=== PATIENT | female | born 1985 | race Caucasian/White ===

== ENCOUNTER 2019-01-28 07:57 | Outpatient (CLI) | payer OTHER ==
--- NOTE | 2019-01-28 09:34 | RAD ---
Exam: Upper GI with air contrast: HISTORY: Upper abdominal pain Swallowing function was unremarkable. The esophagus shows no stricture or ulcer or mass. Fundus, body , and antrum the stomach are normal. Normal-appearing pylorus. Normal-appearing duodenum and C-loop. IMPRESSION: Normal upper GI series.
== END 2019-01-28 07:58 | disposition home or self-care (01) ==
LOC: RAD 07:57
PROVIDERS: ATTEND Internal Medicine
DX: R10.10 Upper abdominal pain, unspecified (principal)
CPT/HCPCS: 74247

== ENCOUNTER 2019-07-02 15:20 | Outpatient (CLI) | payer OTHER ==
--- NOTE | 2019-07-02 15:42 | RAD ---
Exam: 3 views sinuses HISTORY: Acute rhinosinusitis FINDINGS: Visualized calvarium and maxillofacial bones are unremarkable Symmetric aeration of the paranasal sinuses and mastoid air cells IMPRESSION: Unremarkable sinus radiograph series. Additional imaging if clinically warranted
== END 2019-07-02 15:21 | disposition home or self-care (01) ==
LOC: BICRAD 15:20
PROVIDERS: ATTEND Internal Medicine
DX: J01.90 Acute sinusitis, unspecified (principal)
CPT/HCPCS: 70220

== ENCOUNTER 2020-03-07 19:39 | Emergency (ER) | payer OTHER ==
[2020-03-07 20:09] LABS: Bacteria/HPF None Seen HPF (None Seen); Bilirubin Negative (Negative); Blood, Urine 2+ (Negative); Clarity Clear (Clear); Glucose, Urine (Dipstick) Normal (Negative); Ketone, Urine Negative (Negative); Leukocyte 25 Leu/uL (Negative); Nitrite Negative (Negative); Pregnancy Test - Urine (BHCG) Negative (Negative); Pregu Control Background? CLEAR/WHITE (CLR/WHITE); Pregu Control Bar Appear? YES (CONTROL BAR); Protein, Urine (Dipstick) 10 mg/dL (Neg-Trace); Specific Gravity 1.032 (1.002-1.036); Specific Gravity, Urine 1.032 (1.002-1.036); Urobilinogen Normal mg/dL (Less than 2); pH, Urine 5.5 (5.0-9.0)
[2020-03-07] MEDS ORDERED: Ketorolac Tromethamine 30 MG/ML VIAL ONE (21:06)
[2020-03-07 21:19] LABS: #Eosinphils 0.1 thou/uL (0.0-0.7); #Monocytes 0.7 thou/uL (0.11-0.59); #Neutrophils 6.8 thou/uL (1.40-6.50); %Basophils 0.2 % (0.0-1.0); %Eosinophils 0.8 % (0.0-10.0); %Lymphocytes 28.8 % (21.0-51.0); %Monocytes 6.5 % (0.0-10.0); %Neutrophils 63.8 % (42.0-75.0); Hemoglobin 12.8 g/dL (12.0-16.0); Mean Corpuscular HGB CONC 34.9 g/dL (32.0-36.0); Mean Corpuscular Hemoglobin 30.3 pg (27.0-31.0); Mean Platelet Volume 8.5 fL (7.4-10.4); Platelet Count 279 thou/uL (130-400); RBC Distribution Width 12.1 % (11.5-14.5); Red Blood Cell (RBC) Count 4.23 mill/uL (4.20-5.40); White Blood Cell (WBC) Count 10.6 thou/uL (4.8-10.8)
--- NOTE | 2020-03-07 21:41 | ULT ---
PELVIC ULTRASOUND: Transabdominal ultrasound of the pelvis performed. Indications: Pelvic pain. FINDINGS: The uterus has an unremarkable appearance. Endometrial stripe measured at 6 mm. Echogenicity in the e ndometrium consistent with IUD. The left ovary is identified and appears unremarkable. The right ovary shows an exophytic cyst measuring 4-5 cm. Both ovaries demonstrate normal blood flow with color doppler and spectral analysis. No free fluid. IMPRESSION: Right ovarian cyst. POS: AGW
[2020-03-07 21:42] LABS: ALT (SGPT) 24 U/L (8-55); AST (SGOT) 21 U/L (5-34); Albumin 4.1 g/dL (3.5-5.0); Alkaline Phosphatase 93 U/L (40-110); BUN (Urea Nitrogen) 12 mg/dL (7.0-18.7); Bilirubin, Total 0.3 mg/dL (0.2-1.2); Calc. Creatinine Clearance 0 mL/min (70-130); Calcium 9.1 mg/dL (7.8-10.44); Carbon Dioxide 23 mmol/L (22-29); Chloride 106 mmol/L (98-107); Estimated GFR-MDRD Greater than 90; Globulin 3.3 g/dL (2.4-3.5); Glucose 94 mg/dL (70-105); Potassium 4.2 mmol/L (3.5-5.1); Protein, Total 7.4 g/dL (6.0-8.3); Sodium 136 mmol/L (136-145)
[2020-03-07 22:04] LABS: Anion Gap 13 mmol/L (10-20)
== END 2020-03-07 22:49 | disposition home or self-care (01) ==
LOC: ERS 19:39
DX: R10.32 Left lower quadrant pain (principal); F41.9 Anxiety disorder, unspecified; J45.909 Unspecified asthma, uncomplicated; Z79.899 Other long term (current) drug therapy
CPT/HCPCS: 36415; 76856; 80053; 81003; 81015; 81025; 85025; 93976; 96372; J1885

== ENCOUNTER 2020-03-30 15:36 | Outpatient (CLI) | payer OTHER ==
--- NOTE | 2020-03-30 16:20 | CT ---
CT head noncontrast HISTORY: Altered mental status. FINDINGS: Within the deep white matter abutting the upper posterior lateral aspect of the left latera l ventricle is an oval, ill-defined 0.5 cm hyperdense focus. Favored to not be hemorrhage. There is no associated edema. No mass effect. No other focal abnormalities are apparent. Ventricles appear normal in size, shape an d position. Visualized paranasal sinuses are well aerated. IMPRESSION : Small hyperdense lesion adjacent to the left lateral ventricle. Further evaluation is warranted. This may represent a vascular malformation such as cavernoma. Please consider MRI brain, without and with gadolinium contrast, for better characterization.
== END 2020-03-30 15:37 | disposition home or self-care (01) ==
LOC: BICCT 15:36
PROVIDERS: ATTEND Family Medicine
DX: F80.89 Other developmental disorders of speech and language (principal); G93.9 Disorder of brain, unspecified
CPT/HCPCS: 70450

== ENCOUNTER 2021-04-14 05:52 | Emergency (ER) | payer OTHER ==
[2021-04-14] MEDS ORDERED: Ketorolac Tromethamine 30 MG/ML VIAL ONE (06:01)
[2021-04-14 06:33] LABS: #Basophils 0.1 thou/uL (0.0-0.2); #Eosinphils 0.2 thou/uL (0.0-0.7); #Lymphocytes 2.4 thou/uL (1.20-3.40); #Monocytes 0.7 thou/uL (0.11-0.59); %Basophils 0.7 % (0.0-1.0); %Eosinophils 1.6 % (0.0-10.0); %Lymphocytes 23.4 % (21.0-51.0); %Monocytes 6.6 % (0.0-10.0); %Neutrophils 67.7 % (42.0-75.0); Hemoglobin 12.1 g/dL (12.0-16.0); Mean Corpuscular HGB CONC 35.6 g/dL (32.0-36.0); Mean Platelet Volume 7.9 fL (7.4-10.4); Platelet Count 256 thou/uL (130-400); RBC Distribution Width 11.9 % (11.5-14.5); Red Blood Cell (RBC) Count 3.91 mill/uL (4.20-5.40); White Blood Cell (WBC) Count 10.4 thou/uL (4.8-10.8)
[2021-04-14 07:01] LABS: ALT (SGPT) 42 U/L (8-55); AST (SGOT) 38 U/L (5-34); Albumin 3.3 g/dL (3.5-5.0); Alkaline Phosphatase 115 U/L (40-110); Anion Gap 12 mmol/L (10-20); BUN (Urea Nitrogen) 14 mg/dL (7.0-18.7); Bilirubin, Total 0.5 mg/dL (0.2-1.2); Calc. Creatinine Clearance 0 mL/min (70-130); Calcium 8.5 mg/dL (7.8-10.44); Carbon Dioxide 21 mmol/L (22-29); Chloride 107 mmol/L (98-107); Globulin 3.5 g/dL (2.4-3.5); Glucose 103 mg/dL (70-105); Potassium 3.8 mmol/L (3.5-5.1); Protein, Total 6.8 g/dL (6.0-8.3); Sodium 136 mmol/L (136-145)
== END 2021-04-14 09:19 | disposition home or self-care (01) ==
LOC: ERS 05:52
DX: U07.1 COVID-19 (principal); J12.82 Pneumonia due to coronavirus disease 2019; R07.9 Chest pain, unspecified; R11.2 Nausea with vomiting, unspecified; D50.9 Iron deficiency anemia, unspecified; J45.909 Unspecified asthma, uncomplicated
CPT/HCPCS: 71045; 71275; 80053; 84484; 85025; 93005; 96374; J1885

== ENCOUNTER 2022-05-17 14:46 | Outpatient (CLI) | payer OTHER ==
[~2022-05-17 14:46] MED LIST: Iopamidol 300 61% 50 ML VIAL FS ONE
== END 2022-05-17 14:47 | disposition home or self-care (01) ==
LOC: RAD 14:46
PROVIDERS: ATTEND Advanced Practice Midwife
DX: Z98.51 Tubal ligation status (principal); N97.1 Female infertility of tubal origin
CPT/HCPCS: 58340; 74740

== ENCOUNTER 2022-10-17 07:34 | Emergency (ER) | payer OTHER ==
[2022-10-17] MEDS ORDERED: Acetaminophen 500 MG TAB ONE (08:52)
[2022-10-17] MEDS ORDERED: Metoclopramide HCl 10 MG/2 ML VIAL ONE (08:52)
[2022-10-17] MEDS ORDERED: diphenhydrAMINE 50 MG/ML VIAL ONE (08:52)
[2022-10-17 10:55] LABS: CSF Source CSF; Clarity Clear (Clear); Tube # 4
[2022-10-17 10:56] LABS: CSF RBC Count - Manual 1 /cu.mm (None Seen); CSF Source CSF; CSF WBC/NonHematics Count-Man 2 /cu.mm (0-5); Clarity Clear (Clear); Tube # 2
[2022-10-17 10:57] LABS: CSF RBC Count - Manual 1 /cu.mm (None Seen); CSF WBC/NonHematics Count-Man 1 /cu.mm (0-5)
[2022-10-17 11:03] LABS: CSF, Glucose 61 mg/dl (40-70); CSF, Protein 14 mg/dL (15-40)
[2022-10-17 11:08] LABS: Color Of CSF Supernatant COLORLESS (Colorless); Tube # 1; Unspun CSF Color COLORLESS (Colorless)
[2022-10-17 11:42] LABS: #Lymphocytes 1.5 thou/uL (1.20-3.40); #Monocytes 0.4 thou/uL (0.11-0.59); %Basophils 0.4 % (0.0-1.0); %Eosinophils 0.6 % (0.0-10.0); %Lymphocytes 24.9 % (21.0-51.0); %Monocytes 6.3 % (0.0-10.0); %Neutrophils 67.8 % (42.0-75.0); Hemoglobin 12.1 g/dL (12.0-16.0); Mean Corpuscular HGB CONC 33.8 g/dL (32.0-36.0); Mean Corpuscular Hemoglobin 29.8 pg (27.0-31.0); Mean Corpuscular Volume 88.2 fl (78.0-98.0); Mean Platelet Volume 9.1 fL (7.4-10.4); Platelet Count 274 10x3/uL (130-400); RBC Distribution Width 12.6 % (11.5-14.5); Red Blood Cell (RBC) Count 4.07 mill/uL (4.20-5.40); White Blood Cell (WBC) Count 5.9 10x3/uL (4.8-10.8)
[2022-10-17] MEDS ORDERED: Iopamidol-370 76% 500 ML 1 ML ONE (11:50)
[2022-10-17 11:56] LABS: ALT (SGPT) 28 U/L (8-55); AST (SGOT) 22 U/L (5-34); Albumin 3.8 g/dL (3.5-5.0); Alkaline Phosphatase 79 U/L (40-110); Anion Gap 11 mmol/L (10-20); BUN (Urea Nitrogen) 11 mg/dL (7.0-18.7); Bilirubin, Total 0.3 mg/dL (0.2-1.2); Calc. Creatinine Clearance 0 mL/min (70-130); Calcium 9.2 mg/dL (7.8-10.44); Carbon Dioxide 24 mmol/L (22-29); Chloride 105 mmol/L (98-107); Estimated GFR 114; Globulin 2.7 g/dL (2.4-3.5); Glucose 91 mg/dL (70-105); Potassium 4.1 mmol/L (3.5-5.1); Protein, Total 6.5 g/dL (6.0-8.3); Sodium 136 mmol/L (136-145)
== END 2022-10-17 13:15 | disposition home or self-care (01) ==
LOC: ERS 07:34
DX: R51.9 Headache, unspecified (principal)
CPT/HCPCS: 70450; 70496; 70498; 80053; 82945; 84157; 85025; 89051; 96374; 96375; J1200; J2765; Q9967